=== PATIENT | male | born 1925 | race Caucasian/White ===

== ENCOUNTER 2016-11-01 18:26 | Emergency (ER) | payer MEDICARE ==
[~2016-11-01] VITALS: Ht 167.6 cm; Wt 61.7 kg
[2016-11-01] MEDS ORDERED: ASPIRIN 81 MG CHEW TABLET PO ONE (19:30)
[2016-11-01 20:06] LABS: BASO % 0.5 % (0.0-1.0); EOS # 0.1 K/mm3 (0.0-0.50); EOS % 1.2 % (0.0-3.0); LARGE UNSTAINED CELL # 0.2 K/mm3 (0.0-0.4); LYMPH # 1.3 K/mm3 (1.5-4.5); LYMPH % 13.2 % (24.0-44.0); MEAN CORPUSCULAR HEMOGLOBIN 27.5 pg (27.0-33.0); MEAN CORPUSCULAR HGB CONC 32.3 g/dl (32.0-36.5); MEAN CORPUSCULAR VOLUME 85.2 fl (80.0-96.0); MONO # 0.6 K/mm3 (0.0-0.8); NEUTROPHILS # 6.6 K/mm3 (1.8-7.7); PLATELET COUNT, AUTOMATED 349 k/mm3 (150-450); RED CELL DISTRIBUTION WIDTH 15.6 % (11.5-14.5); WHITE BLOOD COUNT 8.7 K/mm3 (4.0-10.0)
[2016-11-01 20:34] LABS: ALBUMIN 3.1 GM/DL (3.2-5.2); ALBUMIN/GLOBULIN RATIO 0.76 (1.00-1.93); ALKALINE PHOSPHATASE 271 U/L (45-117); ALT/SGPT 14 U/L (12-78); ANION GAP 10 MEQ/L (8-16); AST/SGOT 50 U/L (15-37); BILIRUBIN,DIRECT 0.2 MG/DL (0.0-0.2); BILIRUBIN,TOTAL 0.4 MG/DL (0.2-1.0); BLOOD UREA NITROGEN 19 MG/DL (7-18); CALCIUM LEVEL 8.6 MG/DL (8.8-10.2); CARBON DIOXIDE LEVEL 25 MEQ/L (21-32); CHLORIDE LEVEL 101 MEQ/L (98-107); CREATININE FOR GFR 0.79 MG/DL (0.70-1.30); GLOMERULAR FILTRATION RATE > 60.0 (>35); GLUCOSE, FASTING 112 MG/DL (83-110); POTASSIUM SERUM 4.5 MEQ/L (3.5-5.1); SODIUM LEVEL 136 MEQ/L (136-145); TOTAL PROTEIN 7.2 GM/DL (6.4-8.2)
[2016-11-01] MEDS ORDERED: ISOVUE-370 76% 100ML VIAL (Q9967) As Ordered ONE (20:36)
--- NOTE | 2016-11-01 21:09 | REP ---
Clinical: Right lower quadrant and pelvic pain. Technique: Axial contrast enhanced images from the lung bases to the pubic symphysis using 100 ml Isovue 370 intravenous contrast material with coronal and sagittal re-formations. Comparison: None. Findings: Lung bases demonstrate moderate chronic bronchiectasis and minimal scarring along with trace basilar atelectasis. Cardiomegaly suggested. Liver has a subtle heterogeneity to the parenchyma and underlying hepatocellular disease cannot be excluded. Spleen demonstrates multiple parenchymal calcifications suggesting prior granulomas disease. Pancreas, gallbladder, bilateral adrenal glands, and kidneys are normal. The enteric system demonstrates moderate fecal stasis along with sigmoid diverticulosis, but no evidence for obstruction or acute inflammatory process. Evaluation of the pelvis is somewhat limited due to metallic streak artifact from right hip prosthesis. The bladder is collapsed. The prostate gland measures approximately 5 cm in transverse length. No ascites. No free air. No intraperitoneal or retroperitoneal adenopathy. Moderate atherosclerotic changes to the aorta and vasculature without aneurysm. Skeletal structures demonstrate diffuse sclerosis involving the ribs, vertebral bodies, and pelvic bones consistent with metastatic disease possibly related to prostate cancer. No obvious acute fracture is appreciated. Impression: 1. 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 2. Sigmoid diverticulosis without acute diverticulitis. 3. Moderate fecal stasis without obstruction or obvious acute inflammatory process. 4. Lung bases demonstrate minimal basilar atelectasis. Signed by Joseph Alicea MD 11/01/2016 09:00 P
[2016-11-01 22:46] VITALS: BP 120/66
--- NOTE | 2016-11-02 09:28 | ECGEPIP ---
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
== END 2016-11-01 23:18 | disposition home or self-care (01) ==
LOC: M ED 19:25
DX: C79.51 Secondary malignant neoplasm of bone (principal); M54.5 Low back pain; R10.2 Pelvic and perineal pain; R50.9 Fever, unspecified; R91.8 Other nonspecific abnormal finding of lung field; R07.9 Chest pain, unspecified; Z85.46 Personal history of malignant neoplasm of prostate; Z92.89 Personal history of other medical treatment
CPT/HCPCS: 36415; 71020; 74177; 80048; 80076; 81001; 81002; 82550; 82553; 83880; 84484; 85025; 87086; 93005; 93041; 94760; 99285; G0463; Q9967

== ENCOUNTER → 2016-11-01 | Outpatient (REF) | payer MEDICARE | LOC: M SFHCLERA 17:54 | PROVIDERS: ATTEND Physician Assistant | DX: R50.9 Fever, unspecified (principal) ==

== ENCOUNTER → 2016-11-12 | Outpatient (REF) | payer MEDICARE | LOC: M LAB REF 13:40 | PROVIDERS: ATTEND Internal Medicine Medical Oncology | DX: C61 Malignant neoplasm of prostate (principal) ==

== ENCOUNTER → 2016-11-17 | Outpatient (CLI) | payer MEDICARE ==
--- NOTE | 2016-11-17 15:37 | REP ---
MR BRAIN WITHOUT AND WITH CONTRAST: HISTORY: Headache. CONTRAST: ProHance 12.2 mL. COMPARISON: 09/24/2009. Areas of increased signal intensity on T2-weighted images are present in the periventricular and subcortical white matter. This represents small vessel ischemic disease. There is no intraparenchymal hemorrhage, infarct, mass, or midline shift. There is no abnormal enhancement. The ventricular system and the cortical sulci as well as subarachnoid space in the posterior fossa are dilated consistent with moderate volume loss. There is no extracerebral collection. IMPRESSION: 1. Small vessel ischemic disease. 2. Moderate volume loss. Signed by Bernardo Hamm MD 11/17/2016 03:45 P
== END ==
LOC: M RAD 13:13
PROVIDERS: ATTEND Internal Medicine Medical Oncology
DX: C61 Malignant neoplasm of prostate (principal); I73.9 Peripheral vascular disease, unspecified; R51 Headache
CPT/HCPCS: 70553; A9576

== ENCOUNTER → 2016-11-24 | Outpatient (CLI) | payer MEDICARE ==
--- NOTE | 2016-11-24 18:21 | REP ---
WHOLE BODY BONE SCAN: Following the intravenous administration of 19.75 millicuries technetium 99 MDP, patient's whole body was imaged in the anterior and posterior projections with additional oblique images of the thoracic and pelvic regions performed as well as lateral views of the calvarium and femurs. There is diffuse heterogenous increased uptake in the bilateral ribs and throughout the entire spine. Heterogenous increased uptake is seen throughout the pelvic bones. There is diffuse heterogenous uptake in the scapulae and humeri as well as clavicles and throughout the sternum. There is some increased heterogenous uptake in the femurs bilaterally. Photopenic prosthesis is seen in the proximal right humerus. There is a small focus of increased uptake in the left occipital calvarium. Renal and bladder activity are seen. IMPRESSION: Diffuse axial and appendicular skeletal metastases. Signed by Pedro Luis Guevara MD 11/24/2016 08:23 P
== END ==
LOC: M RAD 10:07
PROVIDERS: ATTEND Internal Medicine Medical Oncology
DX: C61 Malignant neoplasm of prostate (principal); C79.51 Secondary malignant neoplasm of bone
CPT/HCPCS: 78306; A9503

== ENCOUNTER → 2016-12-16 | Outpatient (CLI) | payer MEDICARE ==
--- NOTE | 2016-12-24 10:01 | RADONC ---
CONSULTATION NOTE DATE: 12/16/2016 CHART NUMBER: DIAGNOSIS: Prostate cancer. STAGE: IV ECOG PERFORMANCE STATUS: 0. CONSULTATION NOTE: Mr. 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 HISTORY OF PRESENT ILLNESS: The patient's history dates back to 2000 when he was found to have a rising PSA level that reached 9.07 on 03/02/2001. This continued to rise and the patient underwent a needle biopsy on 03/31/2002 of his prostate. Pathology revealed a Nguyễn score 7 (4-3) adenocarcinoma of the left lobe of the prostate. The patient was seen by us on December 15, 2002 and underwent definitive external beam radiation therapy to his prostate from 01/11/03 to 03/10. The patient received a total dose 7020 cGy. He had done well since then but was recently found to have metastatic disease. The patient was complaining of rib and back pain. A bone scan was done on 11/24/2016 and showed diffuse axial and appendicular skeletal metastasis. The patient has been followed by Dr. Stone his medical oncologist and initiated treatment with Xtandi. Since initiation of treatment with Xtandi all his bone pain has completely resolved and he is having no complaints at this time related to his disease. The patient's review of systems is noncontributory. He denies nausea, vomiting, fevers, chills, night sweats, diplopia, headaches, anxiety or depression, anorexia, weight loss, visual disturbances, chest pain, urinary or bowel difficulties, bone pain, or neurological problems. ALLERGIES: The patient has NO KNOWN DRUG ALLERGIES. SOCIAL HISTORY: The patient does not smoke cigarettes nor abuse alcohol. FAMILY HISTORY: The patient's family history is negative prostate cancer or other malignancies. REVIEW OF SYSTEMS: The patient's review of systems is positive for shingles which he says are causing itching in his right lower lobe calf. He has been scratching that area. He also reports occasional headaches. His review of systems is otherwise noncontributory. He denies nausea, vomiting, fevers, chills, night sweats, diplopia, headaches, anxiety or depression, anorexia, weight loss, visual disturbances, chest pain, urinary or bowel difficulties, bone pain, or neurological problems. PHYSICAL EXAMINATION: The patient is a well-developed, well-nourished male in no acute distress. HEENT exam is normocephalic, atraumatic. Extraocular movements are intact. There is no palpable cervical, supraclavicular, infraclavicular, axillary, or inguinal lymphadenopathy present. Lungs are clear to auscultation and percussion. Heart has a regular rate and rhythm. Abdomen is benign with no hepatosplenomegaly, masses, or tenderness. Rectal examination reveals a normal anal sphincter tone. Skeletal examination reveals no tenderness to pressure or percussion of the bony skeleton. Extremities reveal no clubbing, cyanosis, or edema. He has lost the fingers on his right hand. Neurologic exam is grossly intact as is the remainder of the physical examination. ASSESSMENT: The patient is presently receiving systemic therapy with Xtandi which apparently has were quite nicely. He is having no pain at the present time. Since the role of radiation is palliative. There is really nothing at this exact moment that needs palliation. I have explained to the patient that we are available to him at anytime and can initiate radiation to any of the areas of discomfort. If they should begin causing him discomfort. I have set him up in our office for routine followup in three months' time. Once again he has been instructed to contact our office if any pain should develop in the meantime. We can then readdress whether or not to treat that with palliative radiation therapy. Once again thank you for allowing us to participate in the care of this very pleasant gentleman. If I could be of any further assistance or provide you with any information, please free to contact me anytime. cc: MD Sim Trejo PA
== END ==
LOC: M ONCR 13:25
PROVIDERS: ATTEND Radiology Radiation Oncology
DX: C61 Malignant neoplasm of prostate (principal); C79.51 Secondary malignant neoplasm of bone